=== PATIENT | male | born 1950 | race Caucasian/White ===

== ENCOUNTER 2021-07-30 19:00 | Emergency (ER) | payer OTHER ==
[2021-07-30 19:26] VITALS: BP 155/84; PULSE 99; TEMP 98.1; BMI 30.7
[2021-07-30 20:16] LABS: BASO % 0.9 % (0-2.0); EOS % 0.3 % (0-4.5); HEMATOCRIT 36.6 % (35.4-49); HEMOGLOBIN 11.6 GM/dL (11.7-16.9); LYMPH % 6.5 % (8-40); MCH 21.9 pg (25.7-33.7); MCHC 31.8 g/dl (32.0-35.9); MONO % 5.1 % (3.8-10.2); NEUT % 87.2 % (42.8-82.8); PLATELET COUNT 227 10^3/uL (134-434); RDW 14.3 % (11.9-15.9); WHITE BLOOD COUNT 15.2 K/mm3 (4.0-10.0)
[2021-07-30 20:27] LABS: CHLORIDE 96 mmol/L (98-107); SODIUM 134 mmol/L (136-145)
[2021-07-30 20:29] LABS: CALCIUM 9.3 mg/dL (8.5-10.1)
[2021-07-30 20:30] LABS: ALBUMIN 3.6 g/dl (3.4-5.0); ANION GAP 8 MMOL/L (8-16); CO2 30 mmol/L (21-32); MAGNESIUM 2.2 mg/dL (1.8-2.4)
[2021-07-30 20:31] LABS: BLOOD UREA NITROGEN 19.6 mg/dL (7-18)
[2021-07-30 20:33] LABS: CREATININE 0.9 mg/dL (0.55-1.3); SGOT/AST 17 U/L (15-37); SGPT/ALT 19 U/L (13-61)
[2021-07-30 20:34] LABS: BILIRUBIN,TOTAL 0.4 mg/dL (0.2-1)
[2021-07-30 20:35] LABS: TOT PROT 6.9 g/dl (6.4-8.2)
[2021-07-30 20:36] LABS: ALK PHOS 116 U/L (45-117)
[2021-07-30 21:01] LABS: GLUCOSE,RANDOM 459 mg/dL (74-106)
[2021-07-30] MEDS ORDERED: LACTATED RINGERS SOLUTION 1000 ML INFUS.BAG IV ONE (21:03)
[2021-07-30] MEDS ORDERED: INSULIN (NOVOLOG) ASPART 100 UNITS/ML 10ML VIAL SQ ONE (21:27)
[2021-07-30 23:00] LABS: PH,URINE 7.5 (5.0-8.0); URINE APPEARANCE CLEAR; URINE BILIRUBIN NEGATIVE (NEGATIVE); URINE COLOR YELLOW; URINE GLUCOSE (UA) 3+ (NEGATIVE); URINE KETONE 1+ (NEGATIVE); URINE LEUK ESTERASE NEGATIVE (NEGATIVE); URINE NITRITE NEGATIVE (NEGATIVE); URINE PROTEIN NEGATIVE (NEGATIVE); URINE UROBILINOGEN 0.2 mg/dL (0.2-1.0)
[2021-07-31 00:27] LABS: ANISOCYTOSIS 2+; MACROCYTOSIS 0; OVALOCYTE 1+; PLATELET ESTIMATE NORMAL; TARGET CELLS 2+; TEAR DROP CELLS 1+
== END 2021-07-31 00:13 | disposition home or self-care (01) ==
LOC: JER 19:00
PROC: 3E023GC Introduction of Other Therapeutic Substance into Muscle, Percutaneous Approach (ICD-10-PCS; principal; 2021-07-30)
DX: E11.65 Type 2 diabetes mellitus with hyperglycemia (principal)
CPT/HCPCS: 36415; 70450-TC; 71046-TC-FY; 80053; 81003; 82962; 83735; 84484; 85025; 93005; 93010; 99285-25; C9803; U0003; U0005